=== PATIENT | female | born 1950 | race Caucasian/White ===

== ENCOUNTER → 2020-07-05 | Outpatient (CLI) | payer MEDICARE, OTHER ==
[~2020-07-05] MED LIST: ACETAMINOPHEN500 M1 PO; ADVIL LIQUI-GE200 MG PO; AMITRIPTYLINE H10 M3 PO; ASA81BEC PO; BIOTIN800 MCG PO; CLONAZEPAM 0.50.5 M1 PO; COLACE CLEAR50 MG PO; CRANBERRY500 M2 PO; FISH OIL 1,0001 EAC9 PO; FUROSEMIDE 20 M20 MG PO; GABAPENTIN600 M1 PO; GRALISE600 MG PO; LAMOTRIGINE150 MG PO; LOSARTAN POTASS50 MG PO; MAGNESIUM400 MG PO; MELATONIN3 M1 PO; MELOXICAM15 MG PO; OMEPRAZOLE 20 M20 M1 PO; SENNA PLUS TAB1 EACH PO; SPIRONOLACTONE25 MG PO; SUPER THERAVIT1 EACH PO; TOPAMAX100 MG PO; TRAZODONE HCL100 MG PO; VALACYCLOVIR500 MG PO; VITAMIN D3 COM1 EACH PO
--- NOTE | 2020-07-26 08:38 | PAINCON ---
[address] [address] PAIN MANAGEMENT CONSULTATION Name: HALLEY LARIOS Room: [facility]#: [id number] Admission: 07/05/20 Attend Phys: Sweta Diamond MD Discharge: Date of : 48 Report #: [id number] THIS REPORT FOR: //name// cc: Eamon Ayala MD, Gregory MD ~ THIS REPORT FOR: //name// CC: Eamon Diamond DATE OF SERVICE: 07/05/2020 CHIEF COMPLAINT: Peripheral neuropathy since 1983. HISTORY: The patient is a 70-year-old female, who has been referred to the Pain Clinic because of chronic pain with neuropathy. She describes the pain as background discomfort with a pin and needle sensation. There is a burning and stinging component of it. She has periodic episodes of burst of pain, which lasts 1-3 seconds. She describes it as (fireworks, ball of fire) lasting 5-10 seconds. This often goes on from 1-4 hours. Pain is worse when she is trying to go to sleep, when she does not take her clonazepam or when she is late with her medications. Pain is better when the fireworks start nothing at the time or extra gabapentin at 1800 mg make any difference. She describes her discomfort as continuous, constant, periodic, burning and sharp. She notes that in the daytime, the pain is 3-4/10, and by night, it can rise to 10-14 level on a scale of 1-10. She notes some discomfort in her hands as well. She attributes this severe neuropathy to Yymypvy-Tcnnk-Pisbt disorder. She has decreased pain feelings in her feet up to the level of her shins. 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 The patient is a nurse. ALLERGIES: LISINOPRIL, METOPROLOL, AMLODIPINE, FELODIPINE. CURRENT MEDICATIONS: Topiramate 50 mg, losartan 50 mg, Lasix 20 mg, valacyclovir 500 mg, spironolactone 25 mg, omeprazole 20 mg, aspirin 81 mg, biotin 5000 mcg, multivitamin/minerals, cranberry 500 mg, fish oil 1000 mg, docusate-Senna 50/8.6 mg, Senna 8.6 mg 3-4 tablets p.r.n. acetaminophen 500 mg, vitamin D3 2000 international units, trazodone 100 mg, clonazepam 1 mg, magnesium oxide 400 mg, ibuprofen 200 mg, melatonin 3 mg, lamotrigine 25 mg. PAST MEDICAL HISTORY: Hypertension, right breast cancer, peripheral neuropathy, Kezlwcn-Zhspq-Tspei syndrome, MRSA cellulitis involving the left leg, chronic urinary tract infections, sleep apnea, osteoarthritis severe bilateral knees in 11/2017, fractured left ankle in 11/2017, fractured right fifth finger in 06/04/2018, major depressive disorder/bipolar disorder/[place] [address] PAIN MANAGEMENT CONSULTATION Name: FELICIADREWHALLEY Isaura Room: [facility]#: [id number] Admission: 07/05/20 Attend Phys: Sweta Diamond MD Discharge: Date of : 48 Report #: [id number] PAST SURGICAL HISTORY: Cholecystectomy/appendectomy in 1979; bilateral cataract surgery; left breast biopsy in 1994; tenotomy of second, third and fourth toes on the left foot in 2002; right breast lumpectomy in 12/2006; amputation of right third toe in 10/2009; tenotomy of second, fourth, and fifth toes on the right foot in 12/2009; amputation of right toe in 11/2010; right mastectomy in 10/2011; right knee ____ in 06/2012; total abdominal hysterectomy in 04/2013; urethral sling in 04/2013; right shoulder arthroscopy in 06/2016; right knee arthroscopy in 04/2017; right carpal tunnel release in 07/2017; left carpal tunnel release in 08/2017; thoracic/lumbar spinal surgery 11/2017; multiple biopsies -- right lateral thigh, right axillary line, left upper breast, under nasal septum in 10/2018. SOCIAL HISTORY: The patient is a retired RN, stopped working in 2010. REVIEW OF SYSTEMS: Generally good health, fatigue, weakness, wears glasses, blurred vision, cataract, hearing loss, shortness of breath, swelling of feet, dyspnea on exertion, constipation, diabetes, heat and cold intolerance, joint pain, joint stiffness, weakness of muscles, muscle cramps, back pain, walking difficulty, rash, itching, change in nail, varicose veins, lightheadedness, dizziness, numbness and tingling sensation, memory loss, depression, insomnia, slow to heal. PAIN CLINIC ASSESSMENT AND PQRS: 1. Height 5 feet 8 inches, weight 224 pounds, BMI is 33.2. 2. Vital signs: Blood pressure is 164/69, heart rate 60, respiratory rate 14, room air saturation 97%, temperature 97.9. 3. Pain intensity: 7-8/10. 4. Fall history: The patient has not fallen in the last few weeks. 5. Blood thinner: The patient is not on a blood thinning medication. 6. Hypertension: The patient is being treated for hypertension. 7. Opioids: The patient is not taking opioid medications on a regular basis. 8. Tobacco: The patient denies use of tobacco. 9. Alcohol: The patient denies use of alcoholic beverages. PHYSICAL EXAMINATION: GENERAL: The patient is a well-developed, well-nourished, white female. Appears her stated age. She is alert and oriented x 3. Her affect is appropriate. Speech is fluent. HEENT: Normocephalic, atraumatic. The patient is wearing a facial covering. MUSCULOSKELETAL: She complains of some osteoarthritic changes in her hands. The patient complains of pain in the knees bilaterally. She complains of pain and discomfort down in her feet and has had amputations as described in the past surgical history. She complains of feelings of explosions of pain and discomfort for 3-5 [place] [address] PAIN MANAGEMENT CONSULTATION Name: HALLEY LARIOS Room: [facility]#: [id number] Admission: 07/05/20 Attend Phys: Sweta Diamond MD Discharge: Date of : 48 Report #: [id number] IMPRESSION: 1. Chronic neuropathic pain since 1983. 2. See past medical history above. RECOMMENDATIONS: We have discussed treatment options with the patient. She has a very difficult problem. She is taking all the right medications, which we generally try. We will have the patient try amitriptyline. This medication has oftentimes been helpful with nerve pain, which is shooting in nature. We will also consider the possibility of methadone in the future. Methadone has the ability to provide pain relief, particularly in environments where nerve pain is a problem. The patient has been given a script for Elavil, she will take it 1 tablet at night. We will increase this as she is able to tolerate it. We would like to thank you for letting us participate in her care. We hope she continues to improve. <ELECTRONICALLY SIGNED> By: Sweta Diamond MD 07/26/20 [id number]. Vineet Diamond MD /nt
== END ==
LOC: M.PC 06-12 10:30
PROVIDERS: ATTEND Anesthesiology Pain Medicine
DX: G62.9 Polyneuropathy, unspecified (principal)